=== PATIENT | female | born 1930 | race Caucasian/White ===

== ENCOUNTER 2017-10-06 17:15 | Emergency (ER) | payer MEDICARE, OTHER ==
[~2017-10-06] VITALS: Ht 149.9 cm; Wt 64.9 kg
[~2017-10-06 17:15] MED LIST: ALPRAZOLAM1 MG PO; ATA10 PO; CARAFATE1 GM PO; LAC PO; MAC100 PO; MONTELUKAST SOD10 M1 PO; NOR10 PO; NORCO1 TA2 PO; OMEPRAZOLE DR20 M1 PO; PROAIR HFA0.09 MG/A1 INH; PROMETHAZINE25 M3 PO; RENAL CAPS1 SGL; TRILIPIX135 M1 PO; ZOLPIDEM TARTRA10 MG PO
[2017-10-06 18:12] LABS: BASOPHIL % 0.4 % (0-2); PLATELET COUNT 241 x10^3mcL (130-400)
[2017-10-06 18:58] LABS: CALCIUM 9.4 mg/dL (8.5-10.1); CARBON DIOXIDE 27.5 mmol/L (21-32); CHLORIDE SERUM 102 mmol/L (98-107); CREATININE SERUM 1.3 mg/dL (0.6-1.0); GLUCOSE SERUM 92 mg/dL (74-106); POTASSIUM SERUM 4.8 mmol/L (3.5-5.1); SODIUM SERUM 139 mmol/L (136-145)
[2017-10-06 19:02] LABS: ALBUMIN 3.6 g/dL (3.4-5.0); ALKALINE PHOSPHATASE 38 U/L (46-116); ALT/SGPT 16 U/L (14-59); AST/SGOT 12 U/L (15-37); BILIRUBIN TOTAL 0.24 mg/dL (0.20-1.00); TOTAL PROTEIN, SERUM 7.9 g/dL (6.4-8.2)
[2017-10-06 22:03] VITALS: BP 133/80
== END 2017-10-06 22:03 | disposition home or self-care (01) ==
LOC: ED 17:15
DX: K29.70 Gastritis, unspecified, without bleeding (principal); E86.0 Dehydration; K57.90 Diverticulosis of intestine, part unspecified, without perforation or abscess without bleeding; I10 Essential (primary) hypertension; E78.00 Pure hypercholesterolemia, unspecified; M19.90 Unspecified osteoarthritis, unspecified site
CPT/HCPCS: 83880; J2405; J3010; J7030; Q0092

== ENCOUNTER 2017-10-08 20:28 | Emergency (ER) | payer MEDICARE, OTHER ==
[~2017-10-08] VITALS: Ht 149.9 cm; Wt 66.2 kg
[2017-10-08 20:53] VITALS: Ht 149.9 cm; Wt 66.2 kg
[2017-10-08 21:56] LABS: BASOPHIL % 0.4 % (0-2); PLATELET COUNT 227 x10^3mcL (130-400)
[2017-10-08 22:02] LABS: CARBON DIOXIDE 27.6 mmol/L (21-32); CHLORIDE SERUM 104 mmol/L (98-107); CREATININE SERUM 1.2 mg/dL (0.6-1.0); GLUCOSE SERUM 112 mg/dL (74-106); POTASSIUM SERUM 4.4 mmol/L (3.5-5.1); SODIUM SERUM 140 mmol/L (136-145)
[2017-10-08 22:04] LABS: RED CELL DISTRIBUTION WIDTH 15.2 % (11.5-14.5)
[2017-10-08 22:11] LABS: UA SPECIFIC GRAVITY <=1.005 (1.005-1.035); microscopic required? YES; urine erythrocyte NEGATIVE (NEGATIVE)
[2017-10-08 22:11] LABS: ALKALINE PHOSPHATASE 34 U/L (46-116); ALT/SGPT 18 U/L (14-59); AST/SGOT 15 U/L (15-37); BILIRUBIN TOTAL 0.2 mg/dL (0.20-1.00); CHOLESTEROL 177 mg/dL (<200); CHOLESTEROL/HDL RATIO 3.9; HDL CHOLESTEROL 45 mg/dL (40-60); LIPASE 188 IU/L (73-393); TOTAL PROTEIN, SERUM 7.3 g/dL (6.4-8.2); TRIGLYCERIDES 148 mg/dL (<150)
[2017-10-08 22:13] LABS: ALBUMIN 3.3 g/dL (3.4-5.0)
[2017-10-08 22:34] LABS: T3 TOTAL 0.87 ng/mL
[2017-10-08 22:35] LABS: FREE T4 0.82 ng/dL (0.76-1.46); T4(THYROXINE) 6.6 ug/dL (4.7-13.3)
[2017-10-09 00:09] VITALS: BP 138/75
== END 2017-10-09 00:09 | disposition home or self-care (01) ==
LOC: ED 20:28
PROVIDERS: Specialist
DX: N39.0 Urinary tract infection, site not specified (principal); I10 Essential (primary) hypertension; J45.909 Unspecified asthma, uncomplicated; E78.00 Pure hypercholesterolemia, unspecified; M19.90 Unspecified osteoarthritis, unspecified site
CPT/HCPCS: 36600; 83880; 84439; J3010; J3490

== ENCOUNTER 2017-10-11 09:45 | Inpatient (IN) | payer MEDICARE, OTHER ==
[~2017-10-11] VITALS: Ht 144.8 cm; Wt 64.1 kg
[2017-10-11 09:57] VITALS: Ht 144.8 cm; Wt 64.1 kg
[2017-10-11 10:43] LABS: BASOPHIL % 0.4 % (0-2); PLATELET COUNT 251 x10^3mcL (130-400)
[2017-10-11 10:46] LABS: RED CELL DISTRIBUTION WIDTH 15.1 % (11.5-14.5)
[2017-10-11 10:57] LABS: CALCIUM 9.2 mg/dL (8.5-10.1); CARBON DIOXIDE 28.2 mmol/L (21-32); CHLORIDE SERUM 107 mmol/L (98-107); CREATININE SERUM 1.2 mg/dL (0.6-1.0); GLUCOSE SERUM 143 mg/dL (74-106); POTASSIUM SERUM 4.5 mmol/L (3.5-5.1); SODIUM SERUM 142 mmol/L (136-145)
[2017-10-11 11:01] LABS: ALBUMIN 3.7 g/dL (3.4-5.0); ALKALINE PHOSPHATASE 39 U/L (46-116); ALT/SGPT 20 U/L (14-59); AMYLASE 47 U/L (25-115); AST/SGOT 17 U/L (15-37); BILIRUBIN TOTAL 0.3 mg/dL (0.20-1.00); LIPASE 165 IU/L (73-393)
[2017-10-11 11:32] LABS: microscopic required? NO
[2017-10-11 12:01] VITALS: BP 132/66
[2017-10-11 12:12] LABS: T3 TOTAL 1.06 ng/mL
[2017-10-11 12:24] LABS: urine erythrocyte NEGATIVE (NEGATIVE)
[2017-10-11 12:34] LABS: AMPHETAMINE QUAL UR NONE DETECTED (NEG <=1000)
[2017-10-11 12:41] LABS: CHOLESTEROL/HDL RATIO 3.8; MAGNESIUM 2.4 mg/dL (1.8-2.4)
[2017-10-11 12:50] LABS: FREE T4 0.93 ng/dL (0.76-1.46); FREE THYROXINE INDEX 2.8 ug/dL (1.4-4.5); T4(THYROXINE) 8.7 ug/dL (4.7-13.3)
[2017-10-11] MEDS ORDERED: AMBIENPAK10 M1 PO (12:59)
[2017-10-11] MEDS ORDERED: ESCITALOPRAM20 M1 PO (13:00)
[2017-10-11] MEDS ORDERED: NAPROXEN500 MG PO (13:00)
[2017-10-11] MEDS ORDERED: OLANZAPINE2.5 M1 PO (13:00)
[2017-10-11] MEDS ORDERED: FAMOTIDINE40 MG PO (13:00)
[2017-10-11 17:21] VITALS: BP 109/54
[2017-10-11] MEDS ORDERED: CEPHALEXIN500 MG PO (17:37)
[2017-10-11] MEDS ORDERED: TRAZODONE50 M1 PO (17:41)
[2017-10-11 22:49] VITALS: BP 125/49
[2017-10-12 05:14] VITALS: BP 153/65
[2017-10-12 07:28] LABS: BASOPHIL % 0.4 % (0-2); PLATELET COUNT 241 x10^3mcL (130-400)
[2017-10-12 07:41] LABS: CALCIUM 8.4 mg/dL (8.5-10.1); CARBON DIOXIDE 24.6 mmol/L (21-32); CHLORIDE SERUM 111 mmol/L (98-107); GLUCOSE SERUM 97 mg/dL (74-106); MAGNESIUM 2.4 mg/dL (1.8-2.4); PHOSPHOROUS 2.4 mg/dL (2.5-4.9); POTASSIUM SERUM 4.4 mmol/L (3.5-5.1); SODIUM SERUM 144 mmol/L (136-145)
[2017-10-12 09:45] VITALS: BP 132/60
[2017-10-12 13:32] VITALS: BP 113/54
[2017-10-12 16:54] VITALS: BP 114/57
[2017-10-12 20:46] VITALS: BP 136/68
[2017-10-13 05:53] VITALS: BP 142/68
[2017-10-13 07:26] LABS: BASOPHIL % 0.4 % (0-2); PLATELET COUNT 195 x10^3mcL (130-400)
[2017-10-13 07:31] LABS: CARBON DIOXIDE 26.3 mmol/L (21-32); CHLORIDE SERUM 109 mmol/L (98-107); CREATININE SERUM 0.9 mg/dL (0.6-1.0); GLUCOSE SERUM 91 mg/dL (74-106); MAGNESIUM 2.2 mg/dL (1.8-2.4); PHOSPHOROUS 2.4 mg/dL (2.5-4.9); POTASSIUM SERUM 4.4 mmol/L (3.5-5.1); SODIUM SERUM 140 mmol/L (136-145)
[2017-10-13 08:01] LABS: RED CELL DISTRIBUTION WIDTH 15.3 % (11.5-14.5)
[2017-10-13 09:50] VITALS: BP 148/72
[2017-10-13] MEDS ORDERED: CAR1 PO (10:16)
[2017-10-13] MEDS ORDERED: PRI20 PO (10:17)
[2017-10-13] MEDS ORDERED: BENTYL10 MG PO (10:20)
== END 2017-10-13 12:53 | disposition home or self-care (01) | DRG 391 ==
LOC: ED 09:45 → DU 11:16
PROVIDERS: Emergency Medicine; Family Medicine; Internal Medicine
PROC: 0DB78ZX Excision of Stomach, Pylorus, Via Natural or Artificial Opening Endoscopic, Diagnostic (ICD-10-PCS; 2017-10-12)
PROC: 0DB68ZX Excision of Stomach, Via Natural or Artificial Opening Endoscopic, Diagnostic (ICD-10-PCS; principal; 2017-10-12 10:00)
DX: K29.70 Gastritis, unspecified, without bleeding (principal); N17.0 Acute kidney failure with tubular necrosis; J98.11 Atelectasis; I10 Essential (primary) hypertension; J45.909 Unspecified asthma, uncomplicated; M19.90 Unspecified osteoarthritis, unspecified site; F41.9 Anxiety disorder, unspecified; K57.30 Diverticulosis of large intestine without perforation or abscess without bleeding; E78.5 Hyperlipidemia, unspecified; D64.9 Anemia, unspecified; E83.39 Other disorders of phosphorus metabolism; E83.51 Hypocalcemia; H40.9 Unspecified glaucoma; T39.395A Adverse effect of other nonsteroidal anti-inflammatory drugs [NSAID], initial encounter; Y92.89 Other specified places as the place of occurrence of the external cause; E87.8 Other disorders of electrolyte and fluid balance, not elsewhere classified; J98.4 Other disorders of lung; N28.1 Cyst of kidney, acquired
CPT/HCPCS: 43235; 83880; 84439; J1200; J1610; J2250; J2310; J3010; J3490; J7030; Q0092

== ENCOUNTER 2018-01-21 16:00 | Emergency (ER) | payer MEDICARE, OTHER ==
[~2018-01-21] VITALS: Ht 152.4 cm; Wt 65.8 kg
[~2018-01-21 16:00] MED LIST changes: +AMBIENPAK10 M1 PO; +BENTYL10 MG PO; +CAR1 PO; +CEPHALEXIN500 MG PO; +ESCITALOPRAM20 M1 PO; +FAMOTIDINE40 MG PO; +NAPROXEN500 MG PO; +OLANZAPINE2.5 M1 PO; +PRI20 PO; +TRAZODONE50 M1 PO
[2018-01-21 16:12] VITALS: Ht 152.4 cm; Wt 65.8 kg
[2018-01-21 17:07] LABS: UA SPECIFIC GRAVITY <=1.005 (1.005-1.035); microscopic required? YES; urine erythrocyte NEGATIVE (NEGATIVE)
[2018-01-21 17:25] LABS: BASOPHIL % 0.4 % (0-2); PLATELET COUNT 225 x10^3mcL (130-400)
[2018-01-21 17:29] LABS: RED CELL DISTRIBUTION WIDTH 17.9 % (11.5-14.5)
[2018-01-21 17:41] LABS: CARBON DIOXIDE 26.1 mmol/L (21-32); CHLORIDE SERUM 103 mmol/L (98-107); CREATININE SERUM 1.2 mg/dL (0.6-1.0); GLUCOSE SERUM 103 mg/dL (74-106); POTASSIUM SERUM 4.3 mmol/L (3.5-5.1); SODIUM SERUM 137 mmol/L (136-145)
[2018-01-21 17:45] LABS: ALBUMIN 3.6 g/dL (3.4-5.0); ALKALINE PHOSPHATASE 29 U/L (46-116); ALT/SGPT 18 U/L (14-59); AMYLASE 47 U/L (25-115); AST/SGOT 21 U/L (15-37); BILIRUBIN TOTAL 0.21 mg/dL (0.20-1.00); LIPASE 169 IU/L (73-393); TOTAL PROTEIN, SERUM 7.5 g/dL (6.4-8.2)
[2018-01-21 18:41] VITALS: BP 163/74
== END 2018-01-21 18:41 | disposition home or self-care (01) ==
LOC: ED 16:00
PROVIDERS: Specialist
DX: R10.9 Unspecified abdominal pain (principal); I10 Essential (primary) hypertension; E78.00 Pure hypercholesterolemia, unspecified; F41.9 Anxiety disorder, unspecified; J45.909 Unspecified asthma, uncomplicated
CPT/HCPCS: 83880; J1885; J7030

== ENCOUNTER 2018-01-25 21:18 | Inpatient (IN) | payer MEDICARE, OTHER ==
[~2018-01-25] VITALS: Ht 157.5 cm; Wt 67.0 kg
[2018-01-25 22:09] LABS: BASOPHIL % 0.5 % (0-2); PLATELET COUNT 223 x10^3mcL (130-400)
[2018-01-25 22:12] LABS: RED CELL DISTRIBUTION WIDTH 17.6 % (11.5-14.5)
[2018-01-25 22:31] LABS: CALCIUM 8.7 mg/dL (8.5-10.1); CHLORIDE SERUM 104 mmol/L (98-107); CREATININE SERUM 1.3 mg/dL (0.6-1.0); GLUCOSE SERUM 109 mg/dL (74-106); POTASSIUM SERUM 4.3 mmol/L (3.5-5.1); SODIUM SERUM 137 mmol/L (136-145)
[2018-01-25 22:37] LABS: ALBUMIN 3.5 g/dL (3.4-5.0); ALKALINE PHOSPHATASE 30 U/L (46-116); ALT/SGPT 20 U/L (14-59); AST/SGOT 17 U/L (15-37); BILIRUBIN TOTAL 0.19 mg/dL (0.20-1.00); CHOLESTEROL 181 mg/dL (<200); CHOLESTEROL/HDL RATIO 3.9; HDL CHOLESTEROL 47 mg/dL (40-60); LIPASE 145 IU/L (73-393); T3 TOTAL 0.94 ng/mL; TOTAL PROTEIN, SERUM 7.5 g/dL (6.4-8.2)
[2018-01-25 22:39] LABS: TRIGLYCERIDES 214 mg/dL (<150)
[2018-01-25 22:54] LABS: FREE T4 0.93 ng/dL (0.76-1.46); FREE THYROXINE INDEX 1.8 ug/dL (1.4-4.5); T4(THYROXINE) 5.8 ug/dL (4.7-13.3)
[2018-01-25 23:28] LABS: UA SPECIFIC GRAVITY <=1.005 (1.005-1.035); microscopic required? YES; urine erythrocyte TRACE (NEGATIVE)
[2018-01-26] MEDS ORDERED: NOR5 PO (00:34)
[2018-01-26] MEDS ORDERED: TRAZODONE50 M1 PO (00:34)
[2018-01-26] MEDS ORDERED: OYSCO 500-VIT1 EACH PO (00:35)
[2018-01-26] MEDS ORDERED: CEPHALEXIN500 MG PO (00:35)
[2018-01-26] MEDS ORDERED: AMBIEN10 MG PO (00:36)
[2018-01-26] MEDS ORDERED: DICYCLOMINE HCL10 MG PO (00:36)
[2018-01-26] MEDS ORDERED: LEXAPRO20 MG PO (00:36)
[2018-01-26] MEDS ORDERED: OLANZAPINE5 M2 PO (00:37)
[2018-01-26] MEDS ORDERED: CARAFATE1 GM/10 ML PO (00:38)
[2018-01-26 01:08] VITALS: BP 141/68
[2018-01-26 02:00] LABS: MAGNESIUM 2.5 mg/dL (1.8-2.4)
[2018-01-26 04:35] VITALS: BP 149/59
[2018-01-26 05:43] LABS: BASOPHIL % 0.5 % (0-2); PLATELET COUNT 254 x10^3mcL (130-400)
[2018-01-26 06:01] LABS: CALCIUM 8.8 mg/dL (8.5-10.1); CARBON DIOXIDE 25.6 mmol/L (21-32); CHLORIDE SERUM 106 mmol/L (98-107); CREATININE SERUM 1.1 mg/dL (0.6-1.0); GLUCOSE SERUM 92 mg/dL (74-106); POTASSIUM SERUM 4.5 mmol/L (3.5-5.1); RED CELL DISTRIBUTION WIDTH 17.9 % (11.5-14.5); SODIUM SERUM 141 mmol/L (136-145)
[2018-01-26 10:18] VITALS: BP 121/57
[2018-01-26 18:24] VITALS: BP 115/54
[2018-01-26 19:17] LABS: AMPHETAMINE QUAL UR NONE DETECTED (See below)
[2018-01-26 20:32] VITALS: BP 130/59
[2018-01-27 05:15] VITALS: BP 138/63
[2018-01-27 09:28] VITALS: BP 105/54
[2018-01-27 14:00] LABS: BASOPHIL % 0.4 % (0-2); PLATELET COUNT 245 x10^3mcL (130-400)
[2018-01-27 14:01] LABS: RED CELL DISTRIBUTION WIDTH 18.3 % (11.5-14.5)
[2018-01-27 14:02] LABS: CALCIUM 8.3 mg/dL (8.5-10.1); CARBON DIOXIDE 24.4 mmol/L (21-32); CHLORIDE SERUM 107 mmol/L (98-107); CREATININE SERUM 1.1 mg/dL (0.6-1.0); GLUCOSE SERUM 116 mg/dL (74-106); POTASSIUM SERUM 4.6 mmol/L (3.5-5.1); SODIUM SERUM 138 mmol/L (136-145)
[2018-01-27 16:08] VITALS: Ht 157.5 cm; Wt 67.0 kg
[2018-01-27 17:52] VITALS: BP 139/68
[2018-01-27 20:31] VITALS: BP 138/52
[2018-01-28 04:56] VITALS: BP 144/76
[2018-01-28 09:30] VITALS: BP 138/66
[2018-01-28 13:27] VITALS: BP 138/66
[2018-01-28] MEDS ORDERED: CLARITHROMYCIN500 M1 PO (13:28)
[2018-01-28] MEDS ORDERED: FLAGYL500 MG PO (13:28)
[2018-01-28] MEDS ORDERED: PROTONIX40 MG PO (13:28)
== END 2018-01-28 17:39 | disposition home or self-care (01) | DRG 391 ==
LOC: ED 21:18 → MU 23:51 → DU 01-26 16:06 → MU 01-26 22:23
PROVIDERS: Family Medicine; Specialist
DX: K57.90 Diverticulosis of intestine, part unspecified, without perforation or abscess without bleeding (principal); N17.0 Acute kidney failure with tubular necrosis; N39.0 Urinary tract infection, site not specified; K29.00 Acute gastritis without bleeding; E83.41 Hypermagnesemia; F29 Unspecified psychosis not due to a substance or known physiological condition; I10 Essential (primary) hypertension; G47.00 Insomnia, unspecified; M19.90 Unspecified osteoarthritis, unspecified site; E78.5 Hyperlipidemia, unspecified; E78.00 Pure hypercholesterolemia, unspecified; F32.9 Major depressive disorder, single episode, unspecified; F41.9 Anxiety disorder, unspecified; Z68.28 Body mass index [BMI] 28.0-28.9, adult
CPT/HCPCS: 83880; 84439; J0696; J1885; J2060; J2405; J3010; J3490; J7030; Q0092

== ENCOUNTER 2018-02-19 16:09 | Inpatient (IN) | payer MEDICARE, OTHER ==
[~2018-02-19] VITALS: Ht 152.4 cm; Wt 62.8 kg
[~2018-02-19 16:09] MED LIST changes: +AMBIEN10 MG PO; +CARAFATE1 GM/10 ML PO; +CLARITHROMYCIN500 M1 PO; +DICYCLOMINE HCL10 MG PO; +FLAGYL500 MG PO; +LEXAPRO20 MG PO; +NOR5 PO; +OLANZAPINE5 M2 PO; +OYSCO 500-VIT1 EACH PO; +PROTONIX40 MG PO
[2018-02-19 16:14] VITALS: Ht 152.4 cm; Wt 62.8 kg
[2018-02-19 16:53] LABS: BASOPHIL % 0.6 % (0-2); PLATELET COUNT 233 x10^3mcL (130-400)
[2018-02-19 16:55] LABS: RED CELL DISTRIBUTION WIDTH 17.9 % (11.5-14.5)
[2018-02-19 17:09] LABS: CALCIUM 9.6 mg/dL (8.5-10.1); CARBON DIOXIDE 25.1 mmol/L (21-32); CHLORIDE SERUM 106 mmol/L (98-107); CREATININE SERUM 0.9 mg/dL (0.6-1.0); GLUCOSE SERUM 112 mg/dL (74-106); POTASSIUM SERUM 4.3 mmol/L (3.5-5.1); SODIUM SERUM 139 mmol/L (136-145)
[2018-02-19 17:13] LABS: ALBUMIN 3.4 g/dL (3.4-5.0); ALKALINE PHOSPHATASE 44 U/L (46-116); ALT/SGPT 19 U/L (14-59); AST/SGOT 13 U/L (15-37); BILIRUBIN TOTAL 0.2 mg/dL (0.20-1.00); TOTAL PROTEIN, SERUM 8.1 g/dL (6.4-8.2)
[2018-02-19 18:37] VITALS: BP 160/81
[2018-02-19 18:39] LABS: MAGNESIUM 2.1 mg/dL (1.8-2.4); PHOSPHOROUS 3.2 mg/dL (2.5-4.9)
[2018-02-19 18:40] LABS: CHOLESTEROL/HDL RATIO 4.7
[2018-02-19 18:41] LABS: FREE T4 0.98 ng/dL (0.76-1.46); FREE THYROXINE INDEX 2.5 ug/dL (1.4-4.5); T4(THYROXINE) 7.8 ug/dL (4.7-13.3)
[2018-02-19 19:01] LABS: T3 TOTAL 0.81 ng/mL
[2018-02-19 20:30] VITALS: BP 150/72
[2018-02-20 05:58] VITALS: BP 111/52
[2018-02-20 06:20] LABS: BASOPHIL % 0.4 % (0-2); PLATELET COUNT 246 x10^3mcL (130-400)
[2018-02-20 06:52] LABS: CALCIUM 8.7 mg/dL (8.5-10.1); CARBON DIOXIDE 21.6 mmol/L (21-32); CHLORIDE SERUM 106 mmol/L (98-107); GLUCOSE SERUM 101 mg/dL (74-106); PHOSPHOROUS 3.7 mg/dL (2.5-4.9); POTASSIUM SERUM 3.9 mmol/L (3.5-5.1); SODIUM SERUM 140 mmol/L (136-145)
[2018-02-20 08:24] VITALS: BP 127/66
[2018-02-20 09:30] VITALS: BP 120/66
[2018-02-20 12:00] VITALS: BP 120/66
[2018-02-20 14:05] VITALS: BP 108/57
== END 2018-02-20 16:58 | disposition home or self-care (01) | DRG 880 ==
LOC: ED 16:09 → DU 17:20
PROVIDERS: Emergency Medicine; Internal Medicine
DX: F41.8 Other specified anxiety disorders (principal); N17.0 Acute kidney failure with tubular necrosis; F41.1 Generalized anxiety disorder; K29.70 Gastritis, unspecified, without bleeding; B96.81 Helicobacter pylori [H. pylori] as the cause of diseases classified elsewhere; I10 Essential (primary) hypertension; E78.5 Hyperlipidemia, unspecified; E78.1 Pure hyperglyceridemia; F29 Unspecified psychosis not due to a substance or known physiological condition; M19.90 Unspecified osteoarthritis, unspecified site; F03.90 Unspecified dementia, unspecified severity, without behavioral disturbance, psychotic disturbance, mood disturbance, and anxiety; Z68.31 Body mass index [BMI] 31.0-31.9, adult
CPT/HCPCS: 83880; 84439; J2060; J7040; Q0162